=== PATIENT | male | born 1990 | race Caucasian/White ===

== ENCOUNTER 2018-03-10 16:08 | Emergency (ER) | payer SELFPAY ==
[2018-03-10 16:18] VITALS: BP 135/82
[2018-03-10] MEDS ORDERED: Penicillin V Potassium 500 MG Tab PO ONE (16:34)
--- NOTE | 2018-03-10 16:40 | EDM.PDOC ---
ED HPI GENERAL MEDICAL PROBLEM - General Chief Complaint: ENT Problem Stated Complaint: POSS TOOTH PAIN Time Seen by Provider: 03/10/18 16:22 Source of Information: Reports: Patient History Limitations: Reports: No Limitations - History of Present Illness INITIAL COMMENTS - FREE TEXT/NARRATIVE: Patient is a 27 year old male who presents to the E.D. complaining of left sided lower jaw pain. States this started approximately 2 wks ago. Worsened with chewing on the affected side. States the pain has migrated to his left ear. He is concerned that he may have a dental infection. There is no sinus congestion, sore throat, fever, postnasal drip, cough. States he has poor dentition and has tried to make an appt with a dentist for definitive treatment. The patient has no insurance thus is looking for a dental office that allows payment plan. He has been utilizing ibuprofen and Tylenol with only minimal relief. Admits smoking 3 cigarettes a day. Marijuana use 2-3 times a week. Alcohol use 2-3 drinks a week as well. He is not currently working. Treatments SH[employer]ER [employer]ATWORK: Reports: Acetaminophen, NSAIDS Left Oral/Mouth Pain Score (Numeric/FACES): 7 - Related Data Allergies Allergy/AdvReac Type Severity Reaction Status Date / Time tramadol Allergy Hives Verified 03/10/18 16:18 Home Meds: Home Meds Penicillin V Potassium 500 mg PO Q6HR #28 tab 03/10/18 [Rx] Past Medical History - Past Health History Medical/Surgical History: Denies Medical/Surgical History Social & Family History - Tobacco Use Smoking Status *Q: Never Smoker - Caffeine Use Caffeine Use: Reports: Coffee - Recreational Drug Use Recreational Drug Use: Yes Drug Use in Last 12 Months: Yes Recreational Drug Type: Reports: Marijuana/Hashish Recreational Drug Use Frequency: Socially ED ROS ENT - Review of Systems Review Of Systems: See Below Constitutional: Reports: No Symptoms HEENT: Reports: No Symptoms, Ear Pain (Left) Respiratory: Reports: No Symptoms Cardiovascular: Reports: No Symptoms Musculoskeletal: Denies: Neck Pain Neurological: Reports: No Symptoms ED EXAM, ENT - Physical Exam Exam: See Below Exam Limited By: No Limitations General Appearance: Alert, WD/WN, No Apparent Distress Eye Exam: Bilateral Eye: Normal Inspection Ears: Normal External Exam, Normal Canal, Hearing Grossly Normal, Normal TMs Nose: Normal Inspection, Normal Mucousa, No Blood Mouth/Throat: Normal Inspection, Normal Lips, Normal Oropharynx, Dental Pain (# 17 and 18 tooth. This gentle pressure. Left lower wisdom tooth is present breaking through the gum line with pain present. No significant swelling to the gumline noted. ), Dental Tenderness. No: Drooling, Dry Mucous Membrane, Gum Swelling, Muffled Voice, Pharyngeal Erythema, Throat Pain, Throat Swelling, Tongue Swelling, Tonsillar Exudates, Tonsillar Swelling, Trismus, Uvular Deviation Head: Atraumatic, Normocephalic Neck: Normal Inspection, Supple, Non-Tender, Full Range of Motion. No: Lymphadenopathy (L), Lymphadenopathy (R) Respiratory/Chest: No Respiratory Distress, Lungs Clear, Normal Breath Sounds, No Accessory Muscle Use, Chest Non-Tender Cardiovascular: Normal Peripheral Pulses, Regular Rate, Rhythm Extremities: Normal Inspection Neurological: Alert, Oriented, CN II-XII Intact, Normal Cognition, No Motor/ Sensory Deficits Psychiatric: Normal Affect, Normal Mood Skin: Warm, Dry, Intact, Normal Color Course - Vital Signs Last Recorded V/S: Last Vital Signs Temp 97.8 F 03/10/18 16:16 Pulse 102 H 03/10/18 16:16 Resp 16 03/10/18 16:16 BP 135/82 03/10/18 16:16 Pulse Ox 97 03/10/18 16:16 - Orders/Labs/Meds Meds: Medications Discontinued Medications Generic Name Dose Route Start Last Admin Trade Name Octavianoq PRN Reason Stop Dose Admin Penicillin V Potassium 500 mg 03/10/18 16:34 03/10/18 16:46 Veetids PO 03/10/18 16:35 500 mg ONETIME ONE Administration - Re-Assessments/Exams Free Text/Narrative Re-Assessment/Exam: Suspect pain is related to the left lower wisdom tooth coming in. Patient had pain to the #17 and 18 tooth with gentle pressure. #17 tooth has a large filling with crown noted to the #18 tooth. No gumline swelling noted. Ordered Pen Vk 500mg PO> Discharge instructions as documented. Departure - Departure Time of Disposition: 16:42 Disposition: Home, Self-Care 01 Condition: Good Clinical Impression: Pain, dental - Discharge Information Prescriptions: Penicillin V Potassium 500 mg PO Q6HR #28 tab Referrals: PCP,None [Primary Care Provider] - Forms: ED Department Discharge Additional Instructions: Take the penicillin as prescribed. Utilize Tylenol and ibuprofen in alternating fashion for discomfort. Suggest using [id number] Anbesol and also Orajel for pain relief. Sleep in a upright position. Call and make an appointment with a dentist for definitive treatment. Return to the ED for any new or worsening symptoms.
== END 2018-03-10 17:05 | disposition home or self-care (01) ==
LOC: JD.ED 16:08
DX: K08.89 Other specified disorders of teeth and supporting structures (principal); Z88.5 Allergy status to narcotic agent
CPT/HCPCS: 99283; A9270

== ENCOUNTER 2018-06-28 18:27 | Emergency (ER) | payer SELFPAY ==
[2018-06-28 18:46] VITALS: BP 136/90
[2018-06-28] MEDS ORDERED: Acetaminophen/HYDROcodone 325-10 MG Tab PO ONE (18:49)
[2018-06-28] MEDS ORDERED: Ketorolac 30 MG/ML SDV IM ONE (18:49)
--- NOTE | 2018-06-28 18:56 | EDM.PDOC ---
ED HPI GENERAL MEDICAL PROBLEM - General Chief Complaint: General Stated Complaint: RIB PAIN DUE TO FALL Time Seen by Provider: 06/28/18 18:33 - History of Present Illness INITIAL COMMENTS - FREE TEXT/NARRATIVE: Patient is 27-year-old male accompanied by his presented today to the emergency department for an evaluation of right-sided rib pain after fall at home at 3 AM this morning. He stated that when he was taking shower he slipped and fell onto the bathtub where he sustained injury to his right sided rib cage. After an injury, he was able to move all 4 of his acuity without difficulty. He denies any head injury, numbness or weakness of any of the extremities from fall. Currently he is complaining of pain to his right side of the rib area, which he rated his pain level about 10 on a scale of 0-10. He took [id number] pain medication as well as multiple warm/hot shower to alleviate pain, despite using medication and non-pharmacological therapy his pain remains the same. He denies any other associated symptoms. His pain is mainly aggravated by stretching and deep breathing, while no specific alleviating factors contributing to his pain. He denies any other concern at this time Right Thoracic Pain Score (Numeric/FACES): 10 - Related Data Allergies Allergy/AdvReac Type Severity Reaction Status Date / Time tramadol Allergy Hives Verified 06/28/18 18:46 Home Meds: Home Meds Cyclobenzaprine [Flexeril] 10 mg PO BID PRN #21 tab 06/28/18 [Rx] Past Medical History - Past Health History Medical/Surgical History: Denies Medical/Surgical History - Past Surgical History HEENT Surgical History: Reports: Myringotomy w Tube(s), Tonsillectomy GI Surgical History: Reports: Hernia, Inguinal Social & Family History - Tobacco Use Smoking Status *Q: Current Every Day Smoker Years of Tobacco use: 5 Packs/Tins Daily: 0.1 - Caffeine Use Caffeine Use: Reports: Coffee - Recreational Drug Use Recreational Drug Use: No ED ROS GENERAL - Review of Systems Review Of Systems: ROS reveals no pertinent complaints other than HPI. ED EXAM, GENERAL - Physical Exam Exam: See Below Exam Limited By: No Limitations General Appearance: Alert, WD/WN, No Apparent Distress Head: Atraumatic, Normocephalic Neck: Normal Inspection, Supple, Non-Tender, Full Range of Motion Respiratory/Chest: No Respiratory Distress, Lungs Clear, Normal Breath Sounds, No Accessory Muscle Use, Other (Diffuse tenderness to palpation over the right mid axillary to anterior aspect of the rib cage area) Cardiovascular: Normal Peripheral Pulses, Regular Rate, Rhythm GI/Abdominal: Normal Bowel Sounds, Soft, Non-Tender, No Distention Back Exam: Normal Inspection, Full Range of Motion, NT Extremities: Normal Inspection, Normal Range of Motion, Non-Tender, Normal Capillary Refill, No Pedal Edema Neurological: Alert, Oriented, Normal Cognition, Normal Gait, No Motor/Sensory Deficits Psychiatric: Normal Affect, Normal Mood Skin Exam: Warm, Dry, Intact, Normal Color, No Rash Lymphatic: No Adenopathy Course - Vital Signs Last Recorded V/S: Last Vital Signs Temp 36.1 C 06/28/18 18:43 Pulse 106 H 06/28/18 18:43 Resp 20 06/28/18 18:43 BP 136/90 06/28/18 18:43 Pulse Ox 100 06/28/18 18:43 - Orders/Labs/Meds Orders: Active Orders 24 hr Category Date Time Status Chest 2V [CR] Stat Exams 06/28/18 18:49 Taken Meds: Medications Discontinued Medications Generic Name Dose Route Start Last Admin Trade Name Freq PRN Reason Stop Dose Admin Hydrocodone Bitart/Acetaminophen 1 tab 06/28/18 18:49 06/28/18 19:02 [place] 325-10 Mg PO 06/28/18 18:50 1 tab ONETIME ONE Administration Ketorolac Tromethamine 30 mg 06/28/18 18:49 06/28/18 19:03 Toradol IM 06/28/18 18:50 30 mg ONETIME ONE Administration Orphenadrine Citrate 100 mg 06/28/18 19:00 06/28/18 19:02 Norflex PO 06/28/18 19:01 100 mg ONETIME ONE Administration - Re-Assessments/Exams Free Text/Narrative Re-Assessment/Exam: 06/28/18 19:30 At this time patient was reevaluated at bedside. Patient appears to be resting comfortably on the stretcher. No acute distress noted. Patient stated that his pain level down to 4 on a scale of 0-10 after the use of medication given in the emergency department. Patient is alert and oriented 3 and moving all 4 extremities without any difficulty at the time of discharge Departure - Departure Time of Disposition: 19:44 Disposition: Home, Self-Care 01 Condition: Good Clinical Impression: Rib pain on right side, Contusion of rib on right side Fall in bathtub Qualifiers: Encounter type: initial encounter Qualified Code(s): W18.2XXA - Fall in (into) shower or empty bathtub, initial encounter - Discharge Information Prescriptions: Cyclobenzaprine [Flexeril] 10 mg PO BID PRN #21 tab PRN Reason: Muscle Spasm Instructions: Rib Contusion Referrals: PCP,None [Primary Care Provider] - 3 Days (Please establish primary care provider as soon as possible. Follow up with her PCP in 3-5 days for reevaluation of today emergency room visit) Forms: ED Department Discharge Additional Instructions: Patient has been advised to abstain from alcohol while taking muscle relaxant. Also instructed to make cautious with the use of heavy machinery equipment including operating car while taking muscle relaxant. Advised to drink plenty of fluids. He has been instructed to use ice pack to the injury site multiple times a day as tolerated to alleviate pain and discomfort. Also advised to take ibuprofen 800 mg or Tylenol 1000 mg by mouth 3 times a day as needed for pain control. Patient has been instructed to return to the emergency department immediately if he developed persistent chest pain, shortness of breath, numbness or weakness of the extremities, headache, neck pain, no incontinence. Patient verbalizes understanding of the given instructions and agrees to comply - My Orders Last 24 Hours: My Active Orders 06/28/18 18:49 Chest 2V [CR] Stat - Assessment/Plan Last 24 Hours: My Active Orders 06/28/18 18:49 Chest 2V [CR] Stat
[2018-06-28] MEDS ORDERED: Orphenadrine 100 MG Tab.ER PO ONE (19:00)
--- NOTE | 2018-06-29 07:46 | CR ---
Chest: Two views of the chest are obtained. Comparison: No prior chest x-ray. Heart size and mediastinum are normal. Incidental azygos lobe is noted within the upper right chest. Lungs are clear. No acute parenchymal change. No discrete bony abnormality is seen other than mild scoliosis. Impression: 1. Mild scoliosis. Nothing acute is appreciated on two-view chest x-ray. Diagnostic code #2
== END 2018-06-28 20:00 | disposition home or self-care (01) ==
LOC: JD.ED 18:27
DX: S20.211A Contusion of right front wall of thorax, initial encounter (principal); F17.210 Nicotine dependence, cigarettes, uncomplicated; Z88.5 Allergy status to narcotic agent; W18.2XXA Fall in (into) shower or empty bathtub, initial encounter
CPT/HCPCS: 71046; 96372; 99283; A9270; J1885; 99284

== ENCOUNTER 2018-11-13 18:34 | Emergency (ER) | payer SELFPAY ==
[2018-11-13 19:00] VITALS: BP 150/89
--- NOTE | 2018-11-13 19:07 | EDM.PDOC ---
ED HPI GENERAL MEDICAL PROBLEM - General Chief Complaint: Upper Extremity Injury/Pain Stated Complaint: RT RING FINGER CAN'T REMOVE Time Seen by Provider: 11/13/18 19:07 Source of Information: Reports: Patient History Limitations: Reports: No Limitations - History of Present Illness INITIAL COMMENTS - FREE TEXT/NARRATIVE: 28-year-old male presents to the ED with injury to his right hand that occurred 2 nights ago. States he is swinging around a hair stylist and it broke and struck him on the dorsal aspect of his right hand. He doesn't suffer a laceration between the PIP joint and the fourth MCP joint of his right finger dorsally. Since that time he's been unable to fully extend the finger worrisome for extensor tendon laceration. He has marked swelling of the dorsal hand and some swelling and bruising on the volar aspect of the hand as well. Fingers 2, 3 and 4 and 5 are bruised and swollen up. Not exactly sure when his last tetanus toxoid was. He believes it may have been when he went to college at age 19. Menses. Will do for a tetanus shot in the wound is already 2 days old. Onset: Sudden Onset Date: 11/11/18 (Struck by a hair stylist that he was feeling around while mad. The dorsal aspect of his right hand with injury primarily to the fourth finger) Duration: Day(s): (Happened 2 days ago.) Location: Reports: Upper Extremity, Right (Right dorsal hand. Primary injuries to the right fourth finger) Quality: Reports: Ache, Throbbing, Other (Unable to fully extend the right fourth finger.) Severity: Moderate Improves with: Reports: None Worsens with: Reports: Movement Context: Denies: Activity, Exercise, Lifting, Sick Contact, Trauma, Other Associated Symptoms: Reports: No Other Symptoms Treatments [employer]: Reports: Acetaminophen, NSAIDS (Motrin) Right Finger-Ring Pain Score (Numeric/FACES): 10 - Related Data Allergies Allergy/AdvReac Type Severity Reaction Status Date / Time tramadol Allergy Hives Verified 08/28/18 17:39 Home Meds: Home Meds Doxycycline [Vibramycin] 100 mg PO BID #20 cap 11/13/18 [Rx] oxyCODONE HCl/Acetaminophen [Percocet 5-325 mg Tablet] 1 - 2 each PO Q4H PRN # 20 tablet 11/13/18 [Rx] Past Medical History - Past Health History Medical/Surgical History: Denies Medical/Surgical History - Past Surgical History HEENT Surgical History: Reports: Myringotomy w Tube(s), Tonsillectomy GI Surgical History: Reports: Hernia, Inguinal Social & Family History - Caffeine Use Caffeine Use: Reports: Coffee, Energy Drinks, Soda - Living Situation & Occupation Living situation: Reports: Occupation: Unemployed Review of Systems - Review of Systems Review Of Systems: See Below Constitutional: Reports: No Symptoms Eyes: Reports: No Symptoms Ears: Reports: No Symptoms Nose: Reports: No Symptoms Mouth/Throat: Reports: No Symptoms Respiratory: Reports: No Symptoms Musculoskeletal: Reports: Hand Pain (Pain throughout the right dorsal hand involving fingers 2-4. He cannot fully extend his right fourth finger and there is a 1 cm laceration over the proximal phalanx dorsally. Question whether the extensor tendon has been lacerated or the finger is fractured bad enough that he cannot extend due to pain. There is ecchymoses across the dorsal hand and all of the proximal phalanges from 2-5. There is some action of ecchymoses in the palmar aspect of the right hand as well. The base of the third and fourth MCP joints.) Skin: Reports: Other (Laceration 1 cm mid dorsal proximal phalanx on the fourth finger.) Neurological: Reports: No Symptoms Psychiatric: Reports: No Symptoms ED EXAM, GENERAL - Physical Exam Exam: See Below Exam Limited By: No Limitations General Appearance: Alert, WD/WN, Mild Distress Extremities: Other (Examination was limited to the right hand. He has inability to extend the PIP joint of the right fourth finger. Again 1 cm laceration across the dorsal aspect of the right fourth finger between the PIP and fourth MCP joint. Questionable whether the extensor tendon could be involved. However there appears to be marked swelling and he can feel crepitus when he tries to move the finger suggesting is fractured in this area as well. He has ecchymoses of the second third and fifth fingers dorsally over the proximal phalange ease as well. There is also some swelling and ecchymoses dorsal hand over the MCP joints and some ecchymoses on the palmar aspect of the hand at the base of the right fourth and third fingers.) Neurological: Alert, Oriented, CN II-XII Intact Psychiatric: Normal Affect, Normal Mood Skin Exam: Warm, Dry, Normal Color, Other (1 cm laceration which appears to be fairly superficial across the dorsal aspect of the right fourth finger proximal phalanx.) ED TRAUMA EXTREMITY PROCEDURES - Splinting 4th Digit Splint Site: Reduction of fracture proximal phalanx Rt 4th finger and splinted to 3 rd f Pre-Procedure NV Status: Normal Post-Procedure NV Status: Normal Splint Material: Other (charleen taped) Applied & Form Fitted By: Provider Provider Post-Splint Application NV Check: NV Status Normal Complications: No Course - Vital Signs Last Recorded V/S: Last Vital Signs Temp 36.8 C 11/13/18 18:57 Pulse 85 11/13/18 18:57 Resp 20 11/13/18 18:57 BP 150/89 H 11/13/18 18:57 Pulse Ox 99 11/13/18 18:57 - Orders/Labs/Meds Orders: Active Orders 24 hr Category Date Time Status Vaccines to be Administered [RC] PER UNIT ROUTINE Care 11/13/18 19:10 Active Fingers Fourth Digit Rt F8 [CR] Stat Exams 11/13/18 20:31 Ordered Hand Comp Min 3V Rt [CR] Stat Exams 11/13/18 19:10 Taken Meds: Medications Discontinued Medications Generic Name Dose Route Start Last Admin Trade Name Yvonne PRN Reason Stop Dose Admin Bupivacaine HCl 10 ml 11/13/18 19:42 11/13/18 19:55 Sensorcaine-Mpf 0.5% INJECT 11/13/18 19:43 10 ml ONETIME ONE Administration Diphtheria/Tetanus/Acell Pertussis 0.5 ml 11/13/18 19:10 11/13/18 19:17 Adacel IM 11/13/18 19:11 0.5 ml .ONCE ONE Administration Doxycycline Hyclate 200 mg 11/13/18 19:43 11/13/18 19:55 Vibramycin PO 11/13/18 19:44 200 mg ONETIME ONE Administration Oxycodone/Acetaminophen 2 tab 11/13/18 20:36 Percocet 325-5 Mg PO 11/13/18 20:37 ONETIME ONE - Radiology Interpretation Free Text/Narrative:: 28-year-old male presents to the ED with an injury to his right hand that occurred 2 nights ago. He was mad he was swinging around a hair stylist and it's broke when it hit the dorsal aspect of his right hand. This resulted in a superficial laceration across the dorsal right fourth finger proximal phalanx. He states since the time of injury is not been able to fully extend the right fourth finger. He has marked swelling of the dorsal hand all MCP joints 2-5 and proximal phalange ease as well. Is also some ecchymoses at the base of the fourth and third MCP joints in the palmar aspect of the hand. This suggests underlying fracture. X-rays of the right hand to be obtained. - Re-Assessments/Exams Free Text/Narrative Re-Assessment/Exam: 11/13/18 19:42 x-rays of the right hand reveal a fracture through the proximal phalanx right fourth finger with malposition of the fractured fragment with angulation to the warts the palmar aspect of the finger. Plan digital block with bupivacaine to allow reduction of the fracture Dilaudid up to allow proper splinting. He can then see a hand surgeon later this week in [place] with a view to having the finger pin. Going to place him on antibiotic because of the laceration dorsal aspect of the hand. Will be given doxycycline 200 mg now. 11/13/18 20:06 digital block performed on the right fourth finger at the MCP joint to numb up the right fourth finger to allow reduction of the fracture. Of note bupivacaine did lose out the laceration on the dorsal aspect of the finger. This therefore does present the possibility of open fracture. Will be scrubbed once I have it charleen taped and the fracture aligned . 11/13/18 20:35 Reduction performed under digital block with 0.5% Bupivacaine. . Laceration proximal phalanx was cleansed and irrigated. Filled with the wound with topical antibiotic bacitracin. Patient to be placed on Doxil cycle 100 mg twice a day for the next 10 days. 11/13/18 20:45 post reduction films reveal better anatomical alignment but still angulated enough to require surgical pinning. He will call Dr Kenney`s office tomorrow [facility] to arrange an appointment. Departure - Departure Time of Disposition: 20:46 Disposition: Home, Self-Care 01 Condition: Fair Clinical Impression: Fracture of proximal phalanx of finger of right hand - Discharge Information *PRESCRIPTION DRUG MONITORING PROGRAM REVIEWED*: Not Applicable *COPY OF PRESCRIPTION DRUG MONITORING REPORT IN PATIENT CHLOE: Not Applicable Prescriptions: Doxycycline [Vibramycin] 100 mg PO BID #20 cap oxyCODONE HCl/Acetaminophen [Percocet 5-325 mg Tablet] 1 - 2 each PO Q4H PRN # 20 tablet PRN Reason: pain relief. Instructions: Finger Fracture, [id number] Referrals: PCP,None [Primary Care Provider] - Forms: ED Department Discharge Additional Instructions: Evaluation the emergency room tonight in regards to injury to the right fourth finger that occurred 2 nights ago with blunt trauma. Resultant superficial laceration across the proximal phalanx of the right fourth finger. Inability to fully extend the right fourth finger unaware of crepitus with attempted to move the finger. Examination reveals marked ecchymoses and obvious forming of the right fourth finger. X-rays confirmed a fracture through the proximal phalanx of the right fourth finger with malposition. The finger was anesthetized with bupivacaine 0.5% called a digital block. This allowed me to put the bone back into regular alignment into splinted in anatomical position. He will still require consultation with a hand surgeon for surgical pinning this next week. Because of the possibility of an open wound causing germs to get into the fracture site he will placed on antibiotic doxycycline 100 mg twice daily for the next 10 days. First tablet provided in the ED. Will require pain medication Percocet 5/325 mg one or 2 tablets every 4-6 hours as needed for pain relief for the next 3-4 days. After this Motrin 600 mg every 6 hours. I will have you call Dr. Kenney's (handsurgeon) office in [place] tomorrow [facility] to arrange an appointment later this week for these assessment of your fracture and surgical pinning. His phone number is [phone].Take Percocet tabs 1-2 every 4-6hrs as needed for pain relief. - My Orders Last 24 Hours: My Active Orders 11/13/18 19:10 Vaccines to be Administered [RC] PER UNIT ROUTINE Hand Comp Min 3V Rt [CR] Stat 11/13/18 20:31 Fingers Fourth Digit Rt F8 [CR] Stat - Assessment/Plan Last 24 Hours: My Active Orders 11/13/18 19:10 Vaccines to be Administered [RC] PER UNIT ROUTINE Hand Comp Min 3V Rt [CR] Stat 11/13/18 20:31 Fingers Fourth Digit Rt F8 [CR] Stat
[2018-11-13] MEDS ORDERED: Diphtheria,Pertussis(Acell),Tetanus Vaccine 0.5 ML Syringe IM ONE (19:10)
[2018-11-13] MEDS ORDERED: Bupivacaine 0.5% 10 ML SDV INJECT ONE (19:42)
[2018-11-13] MEDS ORDERED: Doxycycline 100 MG Cap PO ONE (19:43)
[2018-11-13] MEDS ORDERED: Acetaminophen/oxyCODONE 325-5 MG Tab PO ONE (20:36)
--- NOTE | 2018-11-14 07:57 | CR ---
Right hand: Four views of the right hand were obtained. Comparison: No previous hand exam. Displaced and angulated fracture is identified within the proximal shaft of the proximal phalanx of the fourth finger. Angulation is apex anterior as well as displacement in an anterior direction of the distal fragment. No additional fracture or other bony abnormality is seen. Impression: 1. Fourth finger fracture as described above. Diagnostic code #3
--- NOTE | 2018-11-14 07:57 | CR ---
Right fourth finger: Four views of the right fourth finger were obtained. Comparison: Prior right hand exam performed on the same day (7:31 PM). Fracture shows improved alignment from previous hand exam but continues to have displacement on the lateral view by approximately 3.7 mm as well as mild persisting angulation. Soft tissue swelling is noted. No additional abnormality is seen. Impression: 1. Improved alignment of previous fracture with mild displacement and angulation remaining. Diagnostic code #3
== END 2018-11-13 20:55 | disposition home or self-care (01) ==
LOC: JD.ED 18:34
DX: S62.614A Displaced fracture of proximal phalanx of right ring finger, initial encounter for closed fracture (principal); Z23 Encounter for immunization; Z88.8 Allergy status to other drugs, medicaments and biological substances; W22.8XXA Striking against or struck by other objects, initial encounter
CPT/HCPCS: 26725; 73130; 73140; 90471; 90700; 99283; A9270; J3490; 26770

== ENCOUNTER 2018-11-21 09:35 | Day surgery (SDC) | payer SELFPAY ==
[2018-11-21] MEDS ORDERED: Bupivacaine 0.25% 30 ML SDV ONE (11:03)
--- NOTE | 2018-11-21 11:38 | PCM.PREANE ---
Preanesthetic Assessment - Procedure Proposed Procedure: Percutaneous pinning vs ORIF of Right Fourth Proximal Phalanx - Anesthesia/Transfusion/Family Hx Anesthesia History: Prior Anesthesia Without Reaction Other Type of Anesthesia Reaction Comment: Denies any known problems in pst, no known family hx-problems Family History of Anesthesia Reaction: No Transfusion History: No Prior Transfusion(s) Intubation History: Unknown - Review of Systems General: No Symptoms Pulmonary: Other (mild intermittent asthma, no inhaler use in last few years, current smoker ) Cardiovascular: No Symptoms Gastrointestinal: Constipation ("r/t narcotics" ) Neurological: Headache (migraine history, slight HO now 12/04) Other: Reports: None - Physical Assessment NPO Status Date: 11/20/18 NPO Status Time: 23:30 O2 Sat by Pulse Oximetry: 95 Respiratory Rate: 16 Vital Signs: Last Vital Signs Temp 37.2 C 11/21/18 09:55 Pulse 85 11/21/18 09:55 Resp 16 11/21/18 09:55 BP 131/90 11/21/18 09:55 Pulse Ox 95 11/21/18 09:55 Height: 1.75 m Weight: 59.874 kg ASA Class: 2 Mental Status: Alert & Oriented x3 Airway Class: Mallampati = 1 Dentition: Reports: Missing Tooth/Teeth (missing tooth right upper, "rotten wisdom tooth" ) Thyro-Mental Finger Breadths: 3 Mouth Opening Finger Breadths: 5 ROM/Head Extension: Full Lungs: Clear to Auscultation, Normal Respiratory Effort Cardiovascular: Regular Rate, Regular Rhythm - Lab Values: Laboratory Last Values WBC 7.17 K/mm3 (4.23-9.07) 11/18/18 13:41 RBC 5.39 M/mm3 (4.63-6.08) 11/18/18 13:41 Hgb 16.2 gm/L (13.7-17.5) 11/18/18 13:41 Hct 47.2 % (40.1-51.0) 11/18/18 13:41 MCV 87.6 fl (79.0-92.2) 11/18/18 13:41 MCH 30.1 pg (25.7-32.2) 11/18/18 13:41 MCHC 34.3 g/dl (32.2-35.5) 11/18/18 13:41 RDW Std Deviation 40.7 fL (35.1-43.9) 11/18/18 13:41 Plt Count 332 K/mm3 (163-337) 11/18/18 13:41 MPV 9.6 fl (9.4-12.3) 11/18/18 13:41 Neut % (Auto) 55.3 % (34.0-67.9) 11/18/18 13:41 Lymph % (Auto) 33.1 % (21.8-53.1) 11/18/18 13:41 Knox % (Auto) 8.5 % (5.3-12.2) 11/18/18 13:41 Eos % (Auto) 2.6 (0.8-7.0) 11/18/18 13:41 Baso % (Auto) 0.4 % (0.1-1.2) 11/18/18 13:41 Neut # (Auto) 3.96 K/mm3 (1.78-5.38) 11/18/18 13:41 Lymph # (Auto) 2.37 K/mm3 (1.32-3.57) 11/18/18 13:41 Knox # (Auto) 0.61 K/mm3 (0.30-0.82) 11/18/18 13:41 Eos # (Auto) 0.19 K/mm3 (0.04-0.54) 11/18/18 13:41 Baso # (Auto) 0.03 K/mm3 (0.01-0.08) 11/18/18 13:41 Sodium 136 mEq/L (136-145) 11/18/18 13:41 Potassium 4.0 mEq/L (3.5-5.1) 11/18/18 13:41 Chloride 100 mEq/L (98-107) 11/18/18 13:41 Carbon Dioxide 26 mEq/L (21-32) 11/18/18 13:41 Anion Gap 14.0 (5-15) 11/18/18 13:41 BUN 9 mg/dL (7-18) 11/18/18 13:41 Creatinine 1.1 mg/dL (0.7-1.3) 11/18/18 13:41 Est Cr Clr Drug Dosing TNP 11/18/18 13:41 Estimated GFR (MDRD) > 60 mL/min (>60) 11/18/18 13:41 BUN/Creatinine Ratio 8.2 (14-18) L 11/18/18 13:41 Glucose 90 mg/dL (74-106) 11/18/18 13:41 Calcium 9.6 mg/dL (8.5-10.1) 11/18/18 13:41 MRSA (PCR) Negative 11/18/18 13:41 - Allergies Allergies/Adverse Reactions: Allergies Allergy/AdvReac Type Severity Reaction Status Date / Time ketorolac [From Toradol] Allergy Cannot Verified 11/20/18 18:13 Remember tramadol Allergy Headache Verified 11/20/18 18:13 - Blood Blood Available: No - Anesthesia Plan Pre-Op Medication Ordered: None - Acknowledgements Anesthesia Type Planned: VIRIDIANA Pt an Appropriate Candidate for the Planned Anesthesia: Yes Alternatives and Risks of Anesthesia Discussed w Pt/Guardian: Yes Pt/Guardian Understands and Agrees with Anesthesia Plan: Yes PreAnesthesia Questionnaire - Past Health History Medical/Surgical History: Denies Medical/Surgical History - Past Surgical History HEENT Surgical History: Reports: Myringotomy w Tube(s), Tonsillectomy GI Surgical History: Reports: Hernia, Inguinal - HOME MEDS Home Medications: Home Meds Doxycycline [Vibramycin] 100 mg PO BID #20 cap 11/13/18 [Rx] Hydrocodone/Acetaminophen [Hydrocodon-Acetaminophen 5-325] 1 tab PO ASDIRECTED 11/21/18 [History] - CURRENT (IN HOUSE) MEDS Current Meds: Current Medications Discontinued Medications Bupivacaine HCl (Marcaine 0.25%) Confirm Administered Dose 30 ml .ROUTE .STK- MED ONE Stop: 11/21/18 11:04
[2018-11-21] MEDS ORDERED: Sodium Chloride 0.9% 10 ML Syringe FLUSH PRN (11:44)
[2018-11-21] MEDS ORDERED: Lidocaine 1%/Sod Bicarbonate in NS 8.4% 1 ML Syringe IDERM PRN (11:44)
[2018-11-21] MEDS ORDERED: Lactated Ringers 1,000 ML IV SCH (11:45)
[2018-11-21] MEDS ORDERED: Lidocaine 0.5% 50 ML SDV ONE (11:54)
[2018-11-21] MEDS ORDERED: fentaNYL 100 MCG/2 ML SDV ONE ×3 (11:55→14:09)
[2018-11-21] MEDS ORDERED: Midazolam 1 MG/ML 2 ML SDV ONE ×2 (11:56→11:59)
[2018-11-21] MEDS ORDERED: Lidocaine 2% 100 MG/5 ML Syringe ONE (11:59)
[2018-11-21] MEDS ORDERED: Lidocaine 1% 2 ML ONE ×3 (11:59)
[2018-11-21] MEDS ORDERED: Sodium Bicarbonate 8.4% 50 MEQ/50 ML SDV ONE (13:08)
[2018-11-21] MEDS ORDERED: Propofol 200 MG/20 ML SDV ONE (13:29)
[2018-11-21] MEDS ORDERED: Ondansetron 4 MG/2 ML SDV IVPUSH PRN (14:08)
[2018-11-21] MEDS ORDERED: diphenhydrAMINE 50 MG/ML SDV IVPUSH PRN (14:08)
[2018-11-21] MEDS ORDERED: HYDROmorphone 0.5 MG/0.5 ML Syringe IVPUSH PRN (14:09)
[2018-11-21] MEDS: fentaNYL 100 MCG/2 ML SDV IVPUSH PRN ×2 (14:10→14:22)
--- NOTE | 2018-11-21 14:12 | PCM48HPAN ---
Post Anesthesia Note - EVALUATION WITHIN 48HRS OF ANESTHETIC Vital Signs in Normal Range: Yes Patient Participated in Evaluation: Yes Respiratory Function Stable: Yes Airway Patent: Yes Cardiovascular Function Stable: Yes Hydration Status Stable: Yes Pain Control Satisfactory: Yes (at time of discharge ) Nausea and Vomiting Control Satisfactory: Yes Mental Status Recovered: Yes Pulse Rate: 108 SaO2: 97 Resp Rate: 16 Temperature: 36.6 C Blood Pressure: 141/97
[2018-11-21] MEDS ORDERED: Acetaminophen/HYDROcodone 325-5 MG Tab PO ONE (14:21)
--- NOTE | 2018-11-21 14:45 | CR ---
Right fourth finger: Four fluoroscopic spot views obtained of the right fourth finger. Comparison: Prior right fourth finger study of 11/13/18. Study shows placement of 2 pins affixing previous proximal phalanx fracture. Fluoroscopy time given as 225.7 seconds. Impression: 1. Procedural study as described above. Diagnostic code #2
[2018-11-21 15:38] VITALS: BP 144/84
--- NOTE | 2018-11-23 06:54 | PCM.OPNOTE ---
- General Post-Op/Procedure Note Date of Surgery/Procedure: 11/21/18 Operative Procedure(s): closed reduction with percutaneous pinning of right fourth proximal phalanx fracture Pre Op Diagnosis: right fourth proximal phalanx fracture Post-Op Diagnosis: Same Anesthesia Technique: MAC, Regional Block Primary Surgeon: Raymond Bell Anesthesia Provider: Jennifer Luke Equipment Associate: Sharla Biggs EBL in mLs: 5 Complications: None Condition: Good
--- NOTE | 2018-11-23 07:38 | OR ---
DATE OF OPERATION: 11/21/2018 SURGEON: Raymond Bell MD OPERATION PERFORMED: Closed reduction and percutaneous pinning of right 4th proximal phalanx fracture. PREOPERATIVE DIAGNOSIS: Right 4th proximal phalanx fracture. POSTOPERATIVE DIAGNOSIS: Right 4th proximal phalanx fracture. ANESTHESIA: MAC with regional Leslie block. ANESTHESIA PROVIDER: Jennifer Luke CRNA. TRANSPORT TECH: Sharla Biggs PA-C. ESTIMATED BLOOD LOSS: Less than 5 mL. COMPLICATIONS: None. CONDITION: Stable. DESCRIPTION OF PROCEDURE: The patient was identified in the preop holding area after proper site was marked and identified by the surgeon. The patient was taken back to the operating theater, where after adequate anesthesia, the patient's right upper extremity was sterilely prepped and draped in the usual sterile fashion. OR time-out was performed. The patient received 2 g of IV Ancef before the Leslie block. At this time, two 0.039 K-wires were placed in retrograde fashion across the proximal phalanx, it was found to be reducible. At this time, there was significant difficulty of getting the K-wires across the fracture site, but I was able to finally get them across with anatomic reduction on both AP and lateral views. The patient had normal cascade of the fingers. There was no malrotation noted. At this time, the pins were then bent and cut. The patient was placed in a sterile soft dressing and a splint, and sent to the PACU in stable condition. MMODAL /[id number]
== END 2018-11-21 15:43 | disposition home or self-care (01) ==
LOC: JD.SDS 09:35
PROVIDERS: ATTEND Orthopaedic Surgery
DX: S62.614A Displaced fracture of proximal phalanx of right ring finger, initial encounter for closed fracture (principal); J45.20 Mild intermittent asthma, uncomplicated; F17.210 Nicotine dependence, cigarettes, uncomplicated; W20.8XXA Other cause of strike by thrown, projected or falling object, initial encounter; Z88.5 Allergy status to narcotic agent; Z79.2 Long term (current) use of antibiotics; Z79.899 Other long term (current) drug therapy
CPT/HCPCS: 26727; 36415; 76000; 80048; 85025; 87641; A9270; J1170; J2001; J2250; J2704; J3010; J3490; J7120; 01820

== ENCOUNTER 2019-09-11 19:58 | Emergency (ER) | payer MEDICAID, OTHER ==
[2019-09-11 20:26] VITALS: BP 144/92; PULSE 98
--- NOTE | 2019-09-11 20:30 | EDM.PDOC ---
ED HPI GENERAL MEDICAL PROBLEM - General Chief Complaint: Genitourinary Problem Stated Complaint: TWISTED R TESTICLE Time Seen by Provider: 09/11/19 20:10 - History of Present Illness INITIAL COMMENTS - FREE TEXT/NARRATIVE: 28-year-old male presents emergency room with testicular pain and swelling. Patient has a four-day history of increased discomfort and swelling in his scrotum right more so than left. He's had problems like this in the past. When he was a child he had a hernia repair including mesh on the right side. Patient denies any burning or frequency with urination. No recent trauma. He's had no fevers or chills no other symptoms at this time. Treatments TELEPHONE ORDER CLERK: Reports: Other (see below) Other Treatments TELEPHONE ORDER CLERK: motrin Right Scrotum Pain Score (Numeric/FACES): 10 - Related Data Allergies Allergy/AdvReac Type Severity Reaction Status Date / Time ketorolac [From Toradol] Allergy Cannot Verified 11/20/18 18:13 Remember tramadol Allergy Headache Verified 11/20/18 18:13 Home Meds: Home Meds Acetaminophen/HYDROcodone [[place] 325-5 MG] 1 tab PO Q6H PRN #10 tablet 09/11/19 [Rx] Past Medical History - Past Health History Medical/Surgical History: Denies Medical/Surgical History Respiratory History: Reports: Asthma Genitourinary History: Reports: Renal Calculus Musculoskeletal History: Reports: Fracture Other Musculoskeletal History: history of right foot fracture. Currently has right ring finger fracture. Neurological History: Reports: Migraines Other Neuro History: releived with otc tylenol/asa analgesic - Past Surgical History HEENT Surgical History: Reports: Myringotomy w Tube(s), Tonsillectomy GI Surgical History: Reports: Hernia, Inguinal Social & Family History - Tobacco Use Smoking Status *Q: Current Every Day Smoker Years of Tobacco use: 12 Packs/Tins Daily: 0.5 - Caffeine Use Caffeine Use: Reports: Coffee, Soda, Tea - Recreational Drug Use Recreational Drug Use: Yes - Living Situation & Occupation Living situation: Reports: Occupation: Unemployed ED ROS GENERAL - Review of Systems Review Of Systems: See Below Constitutional: Reports: No Symptoms Respiratory: Reports: No Symptoms Cardiovascular: Reports: No Symptoms GI/Abdominal: Reports: No Symptoms. Denies: Abdominal Pain, Constipation, Diarrhea, Nausea, Vomiting : Reports: Other (Scrotal tenderness). Denies: Discharge, Dysuria, Flank Pain , Urinary Retention Musculoskeletal: Reports: No Symptoms ED EXAM, GI/ABD - Physical Exam Exam: See Below Exam Limited By: No Limitations General Appearance: Alert, No Apparent Distress Head: Atraumatic, Normocephalic Neck: Normal Inspection, Supple, Non-Tender, Full Range of Motion. No: Lymphadenopathy (L), Lymphadenopathy (R) Respiratory/Chest: No Respiratory Distress, Lungs Clear, Normal Breath Sounds Cardiovascular: Regular Rate, Rhythm, No Edema, No Murmur GI/Abdominal Exam: Normal Bowel Sounds, Soft, Non-Tender. No: Hernia, Mass (Male) Exam: Other (He has some scrotal tenderness right more so than left some mild swelling noted most consistent with a hydrocele but not that bag) Course - Vital Signs Last Recorded V/S: Last Vital Signs Temp 36.8 C 09/11/19 20:23 Pulse 98 09/11/19 20:23 Resp 20 09/11/19 20:23 BP 144/92 H 09/11/19 20:23 Pulse Ox 99 09/11/19 20:23 - Orders/Labs/Meds Orders: Active Orders 24 hr Category Date Time Status Scrotum and Contents [US] Stat Exams 09/11/19 20:36 Taken Labs: Laboratory Tests 09/11/19 09/11/19 Range/Units 20:50 20:50 Urine Color Yellow (Yellow) Urine Appearance Clear (Clear) Urine pH 6.0 (5.0-8.0) Ur Specific Marilla > or = 1.030 (1.005-1.030) Urine Protein Negative (Negative) Urine Glucose (UA) Negative (Negative) Urine Ketones Negative (Negative) Urine Occult Blood Negative (Negative) Urine Nitrite Negative (Negative) Urine Bilirubin Negative (Negative) Urine Urobilinogen 1.0 (0.2-1.0) Ur Leukocyte Esterase Negative (Negative) Urine RBC 0-5 (0-5) /hpf Urine WBC 0-5 (0-5) /hpf Ur Squamous Epith Cells 0-5 (0-5) /hpf Urine Bacteria Few (FEW) /hpf Urine Mucus Moderate H (FEW) /hpf C trachomatis DNA (PCR) Not detected N gonorrhoeae DNA (PCR) Not detected Meds: Medications Discontinued Medications Generic Name Dose Route Start Last Admin Trade Name Freq PRN Reason Stop Dose Admin Hydrocodone Bitart/Acetaminophen 1 tab 09/11/19 22:06 09/11/19 22:26 [place] 325-5 Mg PO 09/11/19 22:07 1 tab ONETIME ONE Administration - Re-Assessments/Exams Free Text/Narrative Re-Assessment/Exam: 09/11/19 23:33 The significant discomfort in his abdomen with and check an ultrasound which shows small bilateral hydroceles larger on the right. I wonder if he started to get recurrent hydroceles perhaps related to his hernia repair as a child. We'll have the patient wear tightfitting underwear nonsteroidals. Follow-up with her regular provider consider urologic evaluation if this continues to be a problem. Departure - Departure Time of Disposition: 23:34 Disposition: Home, Self-Care 01 Clinical Impression: Hydrocele in adult - Discharge Information Prescriptions: Acetaminophen/HYDROcodone [[place] 325-5 MG] 1 tab PO Q6H PRN #10 tablet PRN Reason: Pain Instructions: Hydrocele, Adult Referrals: PCP,None [Primary Care Provider] - Forms: ED Department Discharge, ED Return to Work/School Form Additional Instructions: Return to emergency room with any questions or problems. Follow-up in the Hospital clinic this next week for recheck [phone]. Discussed urologic consultation. Wear tight fitting underwear as we discussed. Aleve 2 twice daily with meals as needed. As the pain medication only as needed allow 12 hours after using this medication before driving or returning to work Sepsis Event Note - Evaluation Sepsis Screening Result: No Definite Risk - Focused Exam Vital Signs: Vital Signs Temp Pulse Resp BP Pulse Ox 09/11/19 20:23 36.8 C 98 20 144/92 H 99 Date Exam was Performed: 09/11/19 Time Exam was Performed: 23:29 - My Orders Last 24 Hours: My Active Orders 09/11/19 20:36 Scrotum and Contents [US] Stat - Assessment/Plan Last 24 Hours: My Active Orders 09/11/19 20:36 Scrotum and Contents [US] Stat
[2019-09-11] MEDS ORDERED: Acetaminophen/HYDROcodone 325-5 MG Tab PO ONE (22:06)
[2019-09-11 22:34] LABS: C. TRACHOMATIS BY PCR NOT DETECTED; N. GONORRHOEAE BY PCR NOT DETECTED
--- NOTE | 2019-09-12 07:25 | US ---
Testicular ultrasound: Multiple real-time images of the testicles were obtained. Comparison: No prior testicular imaging. Testicles have a homogeneous ultrasound appearance. Both arterial and venous blood flow are seen within the testicles. Minimal bilateral hydroceles are noted. Measurements: Right testicle: 5.0 x 3.0 x 2.5 cm Left testicle: 4. 9 x 2.8 x 2.8 cm Impression: 1. Small bilateral hydroceles. 2. No additional abnormality is identified on testicular ultrasound exam. Diagnostic code #2 This report was dictated in [place] Standard Time I agree with preliminary report from [facility], finalized on 09/11/19, 10:49 PM Central Time
== END 2019-09-11 23:44 | disposition home or self-care (01) ==
LOC: JD.ED 19:58
DX: N43.3 Hydrocele, unspecified (principal); J45.909 Unspecified asthma, uncomplicated; F17.210 Nicotine dependence, cigarettes, uncomplicated; Z88.6 Allergy status to analgesic agent
CPT/HCPCS: 76870; 81001; 87491; 87591; 93975; 99284; A9270; 99283